=== PATIENT | male | born 1960 | race Caucasian/White ===

== ENCOUNTER 2016-12-09 19:01 | Inpatient (IN) | payer MEDICAID, MEDICARE ==
[~2016-12-09] VITALS: Ht 177.8 cm; Wt 68.6 kg
[~2016-12-09 19:01] MED LIST: DIVA500T52 PO; OLAN7.5T2 PO
[2016-12-09] MEDS ORDERED: PNEUMOCOCCAL VACCINE POLYVALENT 0.5 ML VIAL [PPSV23] IM ONE (19:30)
[2016-12-09] MEDS ORDERED: HALOPERIDOL 5 MG TABLET PO PRN (19:30)
[2016-12-09] MEDS ORDERED: INFLUENZA VIRUS VACCINE QVS 2016-17 (3YR+)/PF 60 MCG/0.5 ML SYRINGE IM ONE (19:30)
[2016-12-09 19:58] VITALS: BP 147/82
[2016-12-09 20:05] VITALS: BP 114/76
[2016-12-09] MEDS: OLANZapine 7.5 MG TABLET PO SCH (20:56)
[2016-12-09] MEDS: DIVALPROEX SODIUM 500 MG ER TABLET PO SCH (20:56)
[2016-12-10 08:30] VITALS: BP 105/69
[2016-12-10] MEDS: NICOTINE 14 MG/24 HOUR PATCH TD SCH (09:12)
[2016-12-10] MEDS ORDERED: CloNIDine HCL 0.1 MG TABLET PO PRN (09:15)
[2016-12-10] MEDS ORDERED: MAG HYDROX/AL HYDROX/SIMETH ES 30 ML SUSPENSION UDCUP PO PRN (09:15)
[2016-12-10] MEDS ORDERED: BACITRACIN 28.4 GM OINTMENT TP PRN (09:15)
[2016-12-10] MEDS ORDERED: BENZOCAINE/MENTHOL LOZENGE MM PRN (09:15)
[2016-12-10] MEDS ORDERED: PETROLATUM,WHITE 71 GM JELLY TP PRN (09:15)
[2016-12-10] MEDS ORDERED: IBUPROFEN 600 MG TABLET PO PRN (09:15)
[2016-12-10] MEDS ORDERED: ALBUTEROL SULFATE HFA 90 MCG/PUFF 8 GM INHALER IH PRN (09:15)
[2016-12-10] MEDS ORDERED: LOPERAMIDE HCL 2 MG CAPSULE PO PRN (09:15)
[2016-12-10] MEDS ORDERED: ACETAMINOPHEN 325 MG TABLET PO PRN (09:15)
[2016-12-10] MEDS ORDERED: ONDANSETRON HCL 4 MG TABLET PO PRN (09:15)
[2016-12-10] MEDS ORDERED: MAGNESIUM HYDROXIDE SUSPENSION 30 ML UDCUP PO PRN (09:15)
[2016-12-10 16:00] VITALS: BP 133/86
[2016-12-10] MEDS: DIVALPROEX SODIUM 500 MG ER TABLET PO SCH (20:41)
[2016-12-10] MEDS: OLANZapine 7.5 MG TABLET PO SCH (20:42)
[2016-12-11 06:50] VITALS: BP 102/68
[2016-12-11 08:24] LABS: BASOPHILS % (AUTO) 0.9 % (0.0-2.0); EOSINOPHILS % (AUTO) 4.1 % (1.0-6.0); HEMATOCRIT 46.5 % (41-53); LYMPHOCYTES # (AUTO) 2.2 K/uL (1.0-4.8); MEAN CORPUSCULAR HEMOGLOBIN 30.3 pg (26.0-34.0); MEAN CORPUSCULAR HGB CONC 32.3 G/dL (31.0-37.0); MEAN CORPUSCULAR VOLUME 94 fL (80-100); MONOCYTES # (AUTO) 0.5 K/uL (0.1-1.0); MONOCYTES % (AUTO) 7.9 % (2.0-9.0); NEUTROPHILS # (AUTO) 3.2 K/uL (1.8-7.7); NEUTROPHILS % (AUTO) 52.1 % (40.0-70.0); PLATELET COUNT (AUTO) 185 K/uL (150-450); RED BLOOD CELL COUNT(AUTO) 4.96 MIL/uL (4.50-5.90); RED CELL DISTRIBUTION WIDTH 14.5 % (11.5-14.5); WHITE BLOOD COUNT (AUTO) 6.2 K/uL (4.5-11.0)
[2016-12-11 08:36] LABS: HEMOGLOBIN A1C 5.6 % (4.5-6.2)
[2016-12-11 08:47] LABS: ALANINE AMINOTRANSFERASE 138 U/L (12-78); ALBUMIN 3.2 g/dL (3.4-5.0); ANION GAP 8 mmol/L (8-16); ASPARTATE AMINOTRANSFERASE 80 U/L (15-37); BILIRUBIN,TOTAL 0.4 mg/dL (0.1-1.0); CALCIUM, TOTAL 8.1 mg/dL (8.8-10.5); CARBON DIOXIDE 29 mmol/L (22-29); CHLORIDE 108 mmol/L (98-107); CHOL/HDL RATIO 2.1 (4.2-7.3); CREATININE 0.98 mg/dL (0.60-1.30); GLOMERULAR FILTR. RATE CALC > 60 mL/min (>60); SODIUM SERUM 145 mmol/L (136-145); THYROID STIMULATING HORMONE 0.71 uIU/mL (0.36-3.74); TOTAL PROTEIN, SERUM 6.6 g/dL (6.4-8.2); UREA NITROGEN, BLOOD 21 mg/dL (7-18)
[2016-12-11] MEDS: NICOTINE 14 MG/24 HOUR PATCH TD SCH (09:00)
[2016-12-11] MEDS ORDERED: LORazepam 2 MG/ML VIAL IM ONE (12:30)
[2016-12-11] MEDS ORDERED: HALOPERIDOL LACTATE 5 MG/ML VIAL IM ONE (12:30)
[2016-12-11] MEDS ORDERED: DiphenhydrAMINE HCL 50 MG/ML VIAL IM ONE (12:30)
[2016-12-11] MEDS ORDERED: HALOPERIDOL LACTATE 5 MG/ML VIAL ONE (12:31)
[2016-12-11] MEDS ORDERED: LORazepam 2 MG/ML VIAL ONE (12:31)
[2016-12-11] MEDS ORDERED: DiphenhydrAMINE HCL 50 MG/ML VIAL ONE (12:31)
[2016-12-11 16:00] VITALS: BP 113/69
[2016-12-11] MEDS: OLANZapine 7.5 MG TABLET PO SCH (20:39)
[2016-12-11] MEDS: DIVALPROEX SODIUM 500 MG ER TABLET PO SCH (20:39)
[2016-12-12 06:42] VITALS: BP 119/69
[2016-12-12 08:21] VITALS: BP 110/69
[2016-12-12] MEDS: NICOTINE 14 MG/24 HOUR PATCH TD SCH (08:57)
[2016-12-12 16:00] VITALS: BP 130/68
[2016-12-12] MEDS: DIVALPROEX SODIUM 500 MG ER TABLET PO SCH (20:37)
[2016-12-12] MEDS: OLANZapine 7.5 MG TABLET PO SCH (20:37)
[2016-12-13 06:41] VITALS: BP 132/83
[2016-12-13] MEDS: NICOTINE 14 MG/24 HOUR PATCH TD SCH (08:22)
[2016-12-13 08:33] VITALS: BP 135/82
[2016-12-13 16:15] VITALS: BP 117/69
[2016-12-13] MEDS: DIVALPROEX SODIUM 500 MG ER TABLET PO SCH (21:28)
[2016-12-13] MEDS: OLANZapine 7.5 MG TABLET PO SCH (21:28)
[2016-12-14 06:32] VITALS: BP 125/64
[2016-12-14] MEDS: NICOTINE 14 MG/24 HOUR PATCH TD SCH (08:52)
[2016-12-14 09:41] VITALS: BP 131/66
[2016-12-14 16:32] VITALS: BP 119/75
[2016-12-14] MEDS: DIVALPROEX SODIUM 500 MG ER TABLET PO SCH (21:00)
[2016-12-14] MEDS: OLANZapine 7.5 MG TABLET PO SCH (21:00)
[2016-12-15 06:05] VITALS: BP 117/59
[2016-12-15] MEDS: NICOTINE 14 MG/24 HOUR PATCH TD SCH (08:26)
[2016-12-15 09:28] VITALS: BP 116/68
== END 2016-12-15 14:45 | disposition home or self-care (01) | DRG 885 ==
LOC: B3A 19:32 → EDSTATUS 19:34
PROVIDERS: ADMIT Psychiatry & Neurology Psychiatry; ATTEND Psychiatry & Neurology Psychiatry
DX: F20.0 Paranoid schizophrenia (principal); R45.851 Suicidal ideations; F17.200 Nicotine dependence, unspecified, uncomplicated; J44.9 Chronic obstructive pulmonary disease, unspecified; B18.2 Chronic viral hepatitis C; E55.9 Vitamin D deficiency, unspecified; F17.210 Nicotine dependence, cigarettes, uncomplicated; K21.9 Gastro-esophageal reflux disease without esophagitis; K59.00 Constipation, unspecified; Z88.0 Allergy status to penicillin; Z79.899 Other long term (current) drug therapy; Z79.51 Long term (current) use of inhaled steroids; Z71.6 Tobacco abuse counseling; Z59.0 Homelessness; Z28.21 Immunization not carried out because of patient refusal; Z90.49 Acquired absence of other specified parts of digestive tract; Z98.890 Other specified postprocedural states
CPT/HCPCS: 83036; 84439; 84443; J1200; J1630; J2060

== ENCOUNTER 2017-07-17 05:13 | Emergency (ER) | payer MEDICARE ==
[~2017-07-17] VITALS: Ht 182.9 cm; Wt 72.7 kg
[~2017-07-17 05:13] MED LIST changes: +OLAN15TA2 PO; -OLAN7.5T2 PO
[2017-07-17 05:14] VITALS: BP 155/94
== END 2017-07-17 06:58 | disposition left against medical advice (07) ==
LOC: EMS 05:15
DX: M25.531 Pain in right wrist (principal); I10 Essential (primary) hypertension; F17.210 Nicotine dependence, cigarettes, uncomplicated; W19.XXXA Unspecified fall, initial encounter; Y93.89 Activity, other specified; Y92.89 Other specified places as the place of occurrence of the external cause; Y99.8 Other external cause status; Z53.21 Procedure and treatment not carried out due to patient leaving prior to being seen by health care provider

== ENCOUNTER 2018-09-29 17:40 | Emergency (ER) | payer SELFPAY ==
[~2018-09-29] VITALS: Ht 177.8 cm; Wt 72.7 kg
[2018-09-29 17:47] VITALS: BP 109/80
== END 2018-09-29 20:24 | disposition left against medical advice (07) ==
LOC: EMS 17:42
DX: L08.89 Other specified local infections of the skin and subcutaneous tissue (principal); Z53.21 Procedure and treatment not carried out due to patient leaving prior to being seen by health care provider

== ENCOUNTER 2019-02-12 15:05 | Emergency (ER) | payer SELFPAY ==
[~2019-02-12] VITALS: Ht 170.2 cm; Wt 68.2 kg
[2019-02-12] MEDS ORDERED: DiphenhydrAMINE HCL 50 MG/ML VIAL IM ONE (16:00)
[2019-02-12] MEDS ORDERED: HALOPERIDOL LACTATE 5 MG/ML VIAL IM ONE (16:00)
[2019-02-12] MEDS ORDERED: LORazepam 2 MG/ML VIAL IM ONE (16:00)
[2019-02-12 18:18] LABS: AMPHET/METH SCREEN,URINE NEGATIVE (NEGATIVE); BARBITURATE SCREEN, URINE NEGATIVE (NEGATIVE); BENZODIAZEPINES SCREEN,URINE NEGATIVE (NEGATIVE); CANNABINOID SCREEN,URINE NEGATIVE (NEGATIVE); COCAINE SCREEN,URINE NEGATIVE (NEGATIVE); METHADONE SCREEN, URINE NEGATIVE (NEGATIVE); OPIATE SCREEN,URINE NEGATIVE (NEGATIVE)
[2019-02-12 18:19] LABS: PHENCYCLIDINE SCREEN,URINE NEGATIVE (NEGATIVE)
[2019-02-12 18:27] LABS: BASOPHILS % (AUTO) 1.6 % (0.0-2.0); EOSINOPHILS % (AUTO) 2.3 % (1.0-6.0); HEMATOCRIT 41.1 % (41-53); HEMOGLOBIN 13.4 g/dL (13.5-17.5); LYMPHOCYTES % (AUTO) 28.8 % (22.0-44.0); MEAN CORPUSCULAR HEMOGLOBIN 30.1 pg (26.0-34.0); MEAN CORPUSCULAR HGB CONC 32.7 G/dL (31.0-37.0); MEAN CORPUSCULAR VOLUME 92 fL (80-100); MONOCYTES # (AUTO) 0.5 K/uL (0.1-1.0); NEUTROPHILS # (AUTO) 4.1 K/uL (1.8-7.7); NEUTROPHILS % (AUTO) 60.3 % (40.0-70.0); PLATELET COUNT (AUTO) 210 K/uL (150-450); RED BLOOD CELL COUNT(AUTO) 4.46 MIL/uL (4.50-5.90); RED CELL DISTRIBUTION WIDTH 14.2 % (11.5-14.5)
[2019-02-12 18:36] LABS: ANION GAP 9 mmol/L (8-16); CALCIUM, TOTAL 8.4 mg/dL (8.8-10.5); CARBON DIOXIDE 25 mmol/L (22-29); CHLORIDE 106 mmol/L (98-107); CREATININE 0.83 mg/dL (0.60-1.30); GLOMERULAR FILTR. RATE CALC > 60 mL/min (>60); GLUCOSE,RANDOM 82 mg/dL (70-110); POTASSIUM 4.1 mmol/L (3.5-5.1); SODIUM SERUM 140 mmol/L (136-145); UREA NITROGEN, BLOOD 16 mg/dL (7-18)
[2019-02-12 18:44] LABS: ALANINE AMINOTRANSFERASE 192 U/L (12-78); ALBUMIN 3.2 g/dL (3.4-5.0); ALKALINE PHOSPHATASE 82 U/L (46-116); ASPARTATE AMINOTRANSFERASE 142 U/L (15-37); BILIRUBIN,TOTAL 0.2 mg/dL (0.1-1.0); TOTAL PROTEIN, SERUM 7.3 g/dL (6.4-8.2)
[2019-02-13 02:08] VITALS: BP 112/75
== END 2019-02-13 02:03 | disposition home or self-care (01) ==
LOC: EMS 15:08
DX: F20.0 Paranoid schizophrenia (principal); F31.9 Bipolar disorder, unspecified; J44.9 Chronic obstructive pulmonary disease, unspecified; I10 Essential (primary) hypertension; F20.9 Schizophrenia, unspecified; F17.210 Nicotine dependence, cigarettes, uncomplicated; F12.90 Cannabis use, unspecified, uncomplicated; Z88.0 Allergy status to penicillin
CPT/HCPCS: 36415; 80053; 80307; 85025; 96372; 99285; G0480; J1200; J1630; J2060

== ENCOUNTER 2019-05-06 09:53 | Emergency (ER) | payer MEDICARE ==
[~2019-05-06] VITALS: Ht 182.9 cm; Wt 78.0 kg
[2019-05-06 10:25] LABS: AMPHET/METH SCREEN,URINE POSITIVE (NEGATIVE); BARBITURATE SCREEN, URINE NEGATIVE (NEGATIVE); BENZODIAZEPINES SCREEN,URINE NEGATIVE (NEGATIVE); CANNABINOID SCREEN,URINE NEGATIVE (NEGATIVE); COCAINE SCREEN,URINE NEGATIVE (NEGATIVE); METHADONE SCREEN, URINE NEGATIVE (NEGATIVE); OPIATE SCREEN,URINE NEGATIVE (NEGATIVE)
[2019-05-06 10:26] LABS: PHENCYCLIDINE SCREEN,URINE NEGATIVE (NEGATIVE)
[2019-05-06 10:27] LABS: BASOPHILS % (AUTO) 0.7 % (0.0-2.0); EOSINOPHILS % (AUTO) 1.8 % (1.0-6.0); HEMATOCRIT 39.9 % (41-53); HEMOGLOBIN 13.1 g/dL (13.5-17.5); LYMPHOCYTES # (AUTO) 1.8 K/uL (1.0-4.8); LYMPHOCYTES % (AUTO) 29.6 % (22.0-44.0); MEAN CORPUSCULAR HGB CONC 32.8 G/dL (31.0-37.0); MEAN CORPUSCULAR VOLUME 94 fL (80-100); MONOCYTES # (AUTO) 0.7 K/uL (0.1-1.0); MONOCYTES % (AUTO) 11.2 % (2.0-9.0); NEUTROPHILS # (AUTO) 3.4 K/uL (1.8-7.7); NEUTROPHILS % (AUTO) 56.7 % (40.0-70.0); PLATELET COUNT (AUTO) 203 K/uL (150-450); RED BLOOD CELL COUNT(AUTO) 4.23 MIL/uL (4.50-5.90); RED CELL DISTRIBUTION WIDTH 14.2 % (11.5-14.5)
[2019-05-06 10:36] LABS: ANION GAP 7 mmol/L (8-16); CALCIUM, TOTAL 8.5 mg/dL (8.8-10.5); CARBON DIOXIDE 26 mmol/L (22-29); CHLORIDE 104 mmol/L (98-107); GLOMERULAR FILTR. RATE CALC > 60 mL/min (>60); GLUCOSE,RANDOM 102 mg/dL (70-110); POTASSIUM 3.6 mmol/L (3.5-5.1); SODIUM SERUM 137 mmol/L (136-145); UREA NITROGEN, BLOOD 18 mg/dL (7-18)
[2019-05-06 10:41] LABS: ALANINE AMINOTRANSFERASE 162 U/L (12-78); ALBUMIN 3.2 g/dL (3.4-5.0); ALKALINE PHOSPHATASE 91 U/L (46-116); ASPARTATE AMINOTRANSFERASE 124 U/L (15-37); BILIRUBIN,TOTAL 0.3 mg/dL (0.1-1.0); TOTAL PROTEIN, SERUM 6.7 g/dL (6.4-8.2)
[2019-05-06] MEDS ORDERED: ZOLPIDEM TARTRATE 10 MG TABLET PO PRN (13:15)
[2019-05-06] MEDS ORDERED: LORazepam 2 MG TABLET PO PRN (13:15)
[2019-05-06] MEDS ORDERED: HALOPERIDOL 5 MG TABLET PO PRN (13:15)
[2019-05-06] MEDS ORDERED: DiphenhydrAMINE HCL 50 MG/ML VIAL IM ONE (15:15)
[2019-05-06] MEDS ORDERED: LORazepam 2 MG/ML VIAL IM ONE (15:15)
[2019-05-06] MEDS ORDERED: HALOPERIDOL LACTATE 5 MG/ML VIAL IM ONE (15:15)
[2019-05-06 20:33] VITALS: BP 129/84
[2019-05-06] MEDS ORDERED: ALBUTEROL SULFATE HFA 90 MCG/PUFF 8 GM INHALER IH PRN (21:00)
[2019-05-06] MEDS ORDERED: NICOTINE 14 MG/24 HOUR PATCH TD PRN (21:00)
[2019-05-06] MEDS ORDERED: GuaiFENesin/D-METHORPHAN [SUGAR-FREE] 200-20MG/10 ML SYRUP UDCUP PO PRN (21:00)
[2019-05-06] MEDS ORDERED: ONDANSETRON HCL 4 MG TABLET PO PRN (21:00)
[2019-05-06] MEDS ORDERED: MAG HYDROX/AL HYDROX/SIMETH ES 30 ML SUSPENSION UDCUP PO PRN (21:00)
[2019-05-06] MEDS ORDERED: IBUPROFEN 400 MG TABLET PO PRN (21:00)
[2019-05-06] MEDS ORDERED: ACETAMINOPHEN 325 MG TABLET PO PRN (21:00)
[2019-05-06] MEDS ORDERED: DOCUSATE SODIUM 100 MG CAPSULE PO PRN (21:00)
[2019-05-06] MEDS ORDERED: LOPERAMIDE HCL 2 MG CAPSULE PO PRN (21:00)
[2019-05-06] MEDS ORDERED: CloNIDine HCL 0.1 MG TABLET PO PRN (21:00)
[2019-05-06] MEDS ORDERED: MAGNESIUM HYDROXIDE SUSPENSION 30 ML UDCUP PO PRN (21:00)
[2019-05-06] MEDS ORDERED: PETROLATUM,WHITE 28 GM JELLY TP PRN (21:00)
[2019-05-07] MEDS ORDERED: ARIPiprazole 10 MG TABLET PO SCH (09:00)
== END 2019-05-07 01:45 | disposition short-term general hospital (02) ==
LOC: EMS 09:55
DX: F20.0 Paranoid schizophrenia (principal); F31.9 Bipolar disorder, unspecified; I10 Essential (primary) hypertension; J44.9 Chronic obstructive pulmonary disease, unspecified; F17.210 Nicotine dependence, cigarettes, uncomplicated; F12.90 Cannabis use, unspecified, uncomplicated; F19.90 Other psychoactive substance use, unspecified, uncomplicated; Z88.0 Allergy status to penicillin
CPT/HCPCS: 36415; 80053; 80307; 85025; 96372; 99291; G0480; J1200; J1630; J2060